=== PATIENT | male | born 1980 | race Caucasian/White ===

== ENCOUNTER 2016-12-10 11:00 | Inpatient (IN) | payer OTHER ==
[~2016-12-10] VITALS: Ht 177.8 cm; Wt 99.8 kg
--- NOTE | ~2016-12-10 | DS ---
Unit #: [id number] #: [id number] Patient: GUS KING [id number] [facility] [address] [place] [address] [id number] I MR#: [id number] NAME: GUS KING ROOM: [facility] Age: 36 Sex: M Admission Date: 12/10/2016 : 1980 Discharge Date: 12/13/2016 Attending Physician: Shiva Magaña M.D. Primary Care Physician: Gay Rosa A.P.R.N. DISCHARGE SUMMARY REASON FOR ADMISSION The patient is a 36-year-old white male, admitted in what appears to have been a methamphetamine-induced psychosis. HOSPITAL COURSE The patient was admitted to the [address] [place] [address] unit and placed on suicide precautions. He was initially noted to be quite irritable in his interactions with this physician and had exhibited some aggression in the [facility]. It was learned that the patient had been prescribed 60 mg daily of Adderall at " " prior to coming to the hospital. This medication was immediately discontinued. The patient's drug screen was positive only for amphetamines. The patient does have a history of methamphetamine use which would bring into question in the opinion to this physician the wisdom of prescription for any psychostimulant and certainly not such a high dose. Whatever the case, with discontinuation of the psychostimulant, the patient's mentation returned to baseline with initiation of Zyprexa 15 mg at bedtime. Discharge was ordered on 12/13/2016. FINAL DIAGNOSES Methamphetamine-induced psychotic disorder, resolved; gastroesophageal reflux disease. DISPOSITION ON DISCHARGE The patient is discharged on the following medications; Desyrel 100 mg at h.s. p.r.n. insomnia, Zyprexa 15 mg at bedtime for psychosis, Protonix 40 mg daily for GERD. DISCHARGE INSTRUCTIONS No dietary or physical restrictions were placed on the patient at the time of discharge. FOLLOWUP Follow up will take place through the auspices of community mental health resources. It is the feeling of this physician that the patient should not continue on any psychostimulant medication given his history of psychotic response to these medications as well as his history of methamphetamine abuse. There remains the possibility that the patient may have exhibited symptoms of a bipolar spectrum disorder during this episode, but the brevity of the episode coupled with its abrupt onset would tend to indicate otherwise. It would also seem to be rather late in life the patient began exhibiting Unit #: [id number] #: [id number] Patient: GUS KING symptoms of bipolar janeth. Dictated by... Shiva Magaña M.D. CB/duy TD: 12/14/2016 03:11 JOB #: [id number] DISCHARGE SUMMARY Page 1 of 1 X Shiva Magaña MD X DISCHARGE SUMMARY
--- NOTE | ~2016-12-10 | PN ---
Unit #: [id number] #: [id number] Patient: GUS KING [id number] [facility] [address] [place] [address] [id number] MR#: [id number] NAME: GUS KING ROOM: [facility] Age: 36 Sex: M Admission Date: 12/10/2016 : 1980 Attending Physician: Shiva Magaña M.D. Admitting Physician: Shiva Magaña M.D. Primary Care Physician: Cassie Ritchie PROGRESS NOTES DATE 12/12/2016 DISCUSSION I have spoken at great length with the patient's who reports significant deterioration in the patient's behavior since three weeks ago when the police were summoned to his home. The patient does reportedly have a history of methamphetamine abuse and actually spent time in retirement related thereto. Unbelievably, he was prescribed Adderall at a local psychiatric facility and more to the point was prescribed 60 mg a day. Whether he has been overusing his Adderall or using methamphetamine in addition to Adderall or is simply psychotic secondary to his high dose of Adderall is unclear at this point, but the patient's reports that he is under the delusional belief that he is a [facility] narcotics officer and had become increasingly violent towards her and family over the past several days. We have discontinued the patient's Adderall as of today, and I have strongly urged him not to restart this medication. If, in fact, the patient does have an attention-deficit disorder, he would seem to be a candidate for Strattera but does not look to be a candidate for continuation of Adderall. The patient seems a bit calmer when seen today and does not allude to being a intelligence support officer. His remains very concerned and states to this physician "He is not my ." He did tolerate last night's dose of Zyprexa without complaint. Dictated by... Shiva Magaña M.D. CB/am TD: 12/12/2016 14:43 JOB #: [id number] Unit #: [id number] #: [id number] Patient: GUS KING PROGRESS NOTES Page 1 of 1 X Shiva Magaña MD PROGRESS NOTE
--- NOTE | ~2016-12-10 | HP ---
Unit #: [id number] #: [id number] Patient: GUS KING [id number] [facility] [address] [place] [address] [id number] MR#: [id number] NAME: GUS KING ROOM: [facility] Age: 36 Sex: M Admission Date: 12/10/2016 : 1980 Attending Physician: Shiva Magaña M.D. Admitting Physician: Shiva Magaña M.D. Primary Care Physician: Gay Rosa A.P.R.N. HISTORY AND PHYSICAL REASON FOR ADMISSION Acute psychiatric inpatient admission. HISTORY OF PRESENT ILLNESS The patient is a 36-year-old male, approximately 1 to 2 weeks history of increased paranoia/underlying mental illness. He resides at home with his daughter. Concern was made at home for the patient's overall well being and subsequently, was brought to the hospital for further evaluation. At the present time, the patient demonstrates flat affect. PAST MEDICAL HISTORY Chronic pain in lower extremities/chronic osteoarthritis. CURRENT HOME MEDICATIONS Adderall, Protonix, and trazodone. ALLERGIES No known drug allergies. REVIEW OF SYSTEMS Please see HPI. Twelve point otherwise negative except for those noted positive in the HPI. FAMILY HISTORY Reviewed and noncontributory. SOCIAL HISTORY Positive for alcohol and tobacco. No illicit drugs. PHYSICAL EXAMINATION VITAL SIGNS: Temperature 98.4, blood pressure 129/81, respiratory rate 20, and pulse 68. GENERAL: Awake, alert, oriented to person, place, and time. Well built, well nourished. Does not appear to be in any acute distress. HEAD: Atraumatic. Normocephalic. EYES: Bilateral extraocular muscles are normal. Pupils equal, reactive to light and accommodation. Sclerae are normal. No jaundice. NECK: Neck is supple. No neck rigidity. No thyromegaly. No carotid bruit. No JVD. Oral mucosa is moist. CHEST: Bilateral vesicular breathing. Clear to auscultation. No basilar rales. CARDIOVASCULAR: S1 and S2 normal. No murmur, no gallop, no rub. ABDOMEN: Soft, nontender. No organomegaly. Bowel sounds are normal. No Unit #: [id number] #: [id number] Patient: GUS KING hernia, no masses, no rebound, no guarding. EXTREMITIES: No pitting edema. No calf tenderness. Extremity pulses, including dorsalis pedis, have good volume. BACK: Normal spine curvature. No spine tenderness. No costovertebral angle tenderness. DIRECTOR OF SPORTS PERFORMANCE: Cranial nerves normal bilaterally. Motor function bilaterally symmetric and normal. Sensory system normal. SKIN: Warm and dry. INITIAL IMPRESSION Acute psychiatric inpatient admission. PLAN As per psychiatrist. Medical condition is stable. Medical prognosis is fair. There are no medical contraindications to patient participating in activities while here at [facility]. Dictated by... Letty Yeung M.D. REBECA/duy TD: 12/11/2016 10:03 JOB #: [id number] HISTORY AND PHYSICAL Page 1 of 1 X Letty Yeung MD X HISTORY AND PHYSICAL
--- NOTE | ~2016-12-10 | PA ---
Unit #: [id number] #: [id number] Patient: GUS KING [id number] [facility] [address] [place] [address] [id number] MR#: [id number] NAME: GUS KING ROOM: [facility] Age: 36 Sex: M Admission Date: 12/10/2016 : 1980 Date of Assessment: 12/11/2016 Attending Physician: Shiva Magaña M.D. Admitting Physician: Shiva Magaña M.D. Primary Care Physician: Gay Rosa A.P.R.N. PSYCHIATRIC ASSESSMENT IDENTIFYING INFORMATION The patient is a 36-year-old white male admitted to the [address] [place] [address] after becoming increasingly paranoid at home. CHIEF COMPLAINT None given. INFORMANT(S) Patient and chart. RELIABILITY Fair. HISTORY OF PRESENT ILLNESS The patient is a 36-year-old white male who is followed at "[facility]." He is prescribed Adderall and trazodone at that facility. The patient approximately three weeks ago was subjected to a police call after he had gotten into an altercation with his . He has become increasingly paranoid for during that period of time. The states that the patient "does not know who he is" though he clearly is oriented to person during today's interview. The patient's reports that she has been more scared of him reporting increasing paranoia and bizarre behavior. The patient has apparently been experiencing some financial stress. 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 The patient denies any suicidal or homicidal ideation at this time and demands discharge from the hospital. He is noted to be somewhat menacing towards this physician during attempted interview. He denies abuse of any psychoactive substances. It is worth noting that the patient has been on a rather high dose of Adderall prescribed at [facility] and this medication could be contributing to the patient's current state of paranoia although he denies having abused this medication. PAST PSYCHIATRIC HISTORY As above. PAST MEDICAL HISTORY The patient has a history of GERD and apparently has a history of DVT. MEDICATIONS Adderall, Protonix, trazodone. ALLERGIES None. Unit #: [id number] #: [id number] Patient: GUS KING FAMILY HISTORY Noncontributory. SOCIAL HISTORY The patient states that he lives with his and two children but the chart indicates that they are . 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 He denies abuse of any psychoactive substances. MENTAL STATUS EXAMINATION At this time reveals the patient to be a well-developed, well-nourished white male, appearing his stated age. He is in no apparent physical distress at the time of examination. He is awake, alert, and oriented in all spheres. His mood is a tad irritable. His affect congruent. Speech is generally relevant and coherent. There are no gross deficits in memory or cognition noted. Intelligence is judged to be in the average range based on fund of knowledge. The patient is less than optimally cooperative during interview. He is currently denying suicidal or homicidal ideation and at this time denies any psychotic symptoms. His judgment and insight do appear to have some impairment. The patient's assets to be assessed. Liabilities lack of resources. DIAGNOSTIC IMPRESSION 1. Bipolar disorder manic phase with psychotic symptoms versus psychotic disorder unspecified versus psychostimulant induced psychosis. 2. GERD. TREATMENT PLAN The patient remains hospitalized for safety and stabilization. Adderall has been discontinued and the patient will continue Protonix and trazodone. I have ordered p.r.n. Zyprexa as well as scheduled h.s. Zyprexa which will need to be necessary at least for a short period of time. The patient will require a 72 hour hold given his demand to leave the hospital at this time. ESTIMATED LENGTH OF STAY Three to seven days. Dictated by... Shiva Magaña M.D. EMPERATRIZ/nory TD: 12/11/2016 22:02 JOB #: [id number] Unit #: [id number] #: [id number] Patient: GUS KING PSYCHIATRIC ASSESSMENT Page 1 of 1 X Shiva Magaña MD X PSYCHIATRIC ASSESSMENT
[2016-12-11 11:03] LABS: BASOPHIL% 0.4 % (0-2.5); EOSINOPHIL# 0.2 X10e3 (0-0.7); EOSINOPHIL% 2.4 % (0.0-7.0); HEMATOCRIT 47.1 % (38.0-50.0); HEMOGLOBIN 15.5 gm/dL (13.0-16.0); LYMPHOCYTE# 2.4 X10e3 (1.0-3.5); LYMPHOCYTE% 23.8 % (17.0-45.0); MEAN CELL VOLUME 87.7 FL (83-96); MEAN CORPUSCULAR HEMOGLOBIN 28.9 PG (28-34); MEAN PLATELET VOLUME 9.5 FL (6.5-11.5); MONOCYTE# 0.8 X10e3 (0-1.0); NEUTROPHIL# 6.7 X10e3 (1.5-7.1); NEUTROPHIL% 65.4 % (40-75); PLATELET COUNT 206 X10e3 (140-420); RED BLOOD COUNT 5.37 X10e (3.90-5.60); RED CELL DISTRIBUTION WIDTH 13.6 % (11.0-15.5); WHITE BLOOD COUNT 10.2 X10e3 (4.0-10.5)
[2016-12-11 11:07] LABS: DIFF IND NO
[2016-12-11 11:57] LABS: THYROID STIMULATING HORMONE 0.7 uIU/ml (0.34-5.60)
[2016-12-11 12:04] LABS: FREE THYROXIN (T4) 0.91 ng/dL (0.58-1.64)
[2016-12-11 12:50] LABS: ALBUMIN SERUM 4.2 g/dL (3.5-5.0); BILIRUBIN,TOTAL 1.7 mg/dL (0.2-2.0); CALCIUM SERUM 9.4 mg/dL (8.4-10.2); CREATININE SERUM 1.2 mg/dL (0.6-1.4); GLOM FILT RATE Estimated 76.8 mL/min (>60); POTASSIUM 4.4 mmol/L (3.5-5.1); PROTEIN TOTAL SERUM 6.8 g/dL (6.0-8.3)
[2016-12-12 09:42] LABS: URINE APPEARANCE CLEAR; URINE BILIRUBIN NEG (NEG); URINE BLOOD NEG (NEG); URINE COLOR YELLOW; URINE GLUCOSE NEG (NEG); URINE KETONE NEG (NEG); URINE LEUKOCYTE ESTERASE NEG (NEG); URINE NITRATE NEG (NEG); URINE PH 5.5 (5-8); URINE PROTEIN NEG (NEG); URINE SPECIFIC GRAVITY 1.017 (1.003-1.035); URINE UROBILINOGEN 0.2 MG/DL (NEG)
[2016-12-12 10:13] LABS: AMPHETAMINE POS (NEG); BARBITURATES NEG (NEG); BENZODIAZEPINES NEG (NEG); COCAINE NEG (NEG); MARIJUANA NEG (NEG); OPIATES NEG (NEG); TRICYCLIC ANTIDEPRESSANTS NEG (NEG); U METHADONE NEG (NEG)
== END 2016-12-13 14:45 | disposition home or self-care (01) | DRG 885 ==
LOC: P1S 14:13
PROVIDERS: Specialist
DX: F31.10 Bipolar disorder, current episode manic without psychotic features, unspecified (principal); K21.9 Gastro-esophageal reflux disease without esophagitis
CPT/HCPCS: 80053; 80307; 81003; 84439; 84443; 85025